=== PATIENT | male | born 1985 | race Caucasian/White ===

== ENCOUNTER 2016-07-01 17:00 | Emergency (ER) | payer OTHER ==
[~2016-07-01] VITALS: Wt 138.0 kg
[~2016-07-01 17:00] MED LIST: TRAM50TA2 PO
[2016-07-01] MEDS ORDERED: morphine 4 MG/ML VIAL IV STA ×2 (18:45→20:23)
[2016-07-01] MEDS ORDERED: ONDANSETRON 4 MG INJ IV STA (18:45)
--- NOTE | 2016-07-01 18:56 | ERD ---
ER Documentation Chief Complaint Date/Time DATE: 07/01/16 TIME: 18:54 Chief Complaint ABD PAIN RADIATING TO LEFT TESTICLE FOR THE PAST 3 DAYS. MILD SWELLING HPI This is a 31-year-old male who presents to the emergency department today complaining of some left-sided abdominal pain, vomiting and diarrhea for the past 3 days. Patient states the pain goes down into his groin. States he has a history of urinary tract infections but denies any history of kidney stones. CT taken Motrin with no improvement in pain. Denies any fevers or chills. Denies any testicular pain. ROS All systems reviewed and are negative except as per history of present illness. Medications Home Meds Active Scripts Loperamide Hcl* (Imodium*) 2 Mg Capsule, 2 MG PO .AFTER EA LOOSE BM Y for DIARRHEA, #10 TAB Prov:HENRY CAMPOVERDE PA-C 07/01/16 Ondansetron Hcl* (Zofran*) 4 Mg Tablet, 4 MG PO Q6H for NAUSEA AND/OR VOMITING, #30 TAB Prov:HENRY CAMPOVERDE PA-C 07/01/16 Ibuprofen* (Motrin*) 800 Mg Tab, 800 MG PO Q6, #30 TAB Prov:HENRY CAMPOVERDE PA-C 07/01/16 Tramadol HCl (Tramadol HCl) 50 Mg Tablet, 50 MG PO Q6, #10 TAB Prov:JOHN YOU DO 06/03/15 Tramadol HCl (Tramadol HCl) 50 Mg Tab, 50 MG PO Q4 Y for PAIN, #20 TAB Prov:YURI VALDES 03/21/15 Allergies Allergies: Coded Allergies: ketorolac (Verified Allergy, Mild, 03/07/15) acetaminophen (Unverified Allergy, Unknown, HIVES, 03/07/15) PMhx/Soc History of Surgery: Yes (CHOLECYSTECTOMY, APPENDECTOMY; r knee) Anesthesia Reaction: No Hx Neurological Disorder: No Hx Respiratory Disorders: No Hx Cardiac Disorders: No Hx Psychiatric Problems: No Hx Miscellaneous Medical Probl: No Hx Alcohol Use: Yes (ocassionally) Hx Substance Use: No Hx Tobacco Use: No Physical Exam Vitals Vital Signs Date Time Temp Pulse Resp B/P Pulse Ox O2 Delivery O2 Flow Rate FiO2 07/01/16 17:08 98.8 98 22 159/98 98 Physical Exam Const: Obese, no acute distress Head: Atraumatic Eyes: Normal Conjunctiva ENT: Normal External Ears, Nose and Mouth. Neck: Full range of motion..~ No meningismus. Resp: Clear to auscultation bilaterally Cardio: Regular rate and rhythm, no murmurs Abd: Soft, left lower quadrant tenderness, non distended. Normal bowel sounds. No Right lower quadrant tenderness. No rebound tenderness. : Testicle descended bilaterally. Uncircumcised. Nontender testicles. No purulent drainage from penis. No masses or lesions testicles Skin: No petechiae or rashes Back: No midline or flank tenderness Neur: Awake and alert Psych: Normal Mood and Affect Result Diagram: 07/01/161937 Results 24 hrs Laboratory Tests Test 07/01/16 19:25 07/01/16 19:38 Urine Bilirubin NEGATIVE Urine Clarity CLEAR Urine Color LT. YELLOW Urine Glucose NEGATIVE% Urine Hemoglobin 2+ Urine Ketones TRACE Urine Leukocyte Esterase NEGATIVE Urine Microscopic RBC 2-5/HPF Urine Microscopic WBC NONE SEEN/HPF Urine Nitrite NEGATIVE Urine Specific [place] 1.020 Urine Total Protein NEGATIVE Urine Urobilinogen 1.0 E.U./dL Urine pH 6.0 Alanine Aminotransferase (ALT/SGPT) 37IU/L Albumin 4.3g/dl Albumin/Globulin Ratio 1.16 Alkaline Phosphatase 88IU/L Anion Gap 18 Aspartate Amino Transf (AST/SGOT) 27IU/L Blood Urea Nitrogen 10mg/dl Calcium Level 9.3mg/dl Carbon Dioxide Level 27mmol/L Chloride Level 101mmol/L Creatinine 0.77mg/dl Direct Bilirubin 0.00mg/dl Globulin 3.70g/dl Glucose Level 109mg/dl Indirect Bilirubin 0.0mg/dl Lipase 69U/L Potassium Level 4.0mmol/L Sodium Level 142mmol/L Total Bilirubin 0.0mg/dl Total Protein 8.0g/dl Current Medications Medications (Trade) Dose Ordered Sig/Federico Route PRN Reason Start Time Stop Time Status Last Admin Dose Admin Morphine Sulfate (morphine) 4 mg ONCE STAT IV 07/01/16 18:45 07/01/16 18:47 DC 07/01/16 19:43 Ondansetron HCl (Zofran Inj) 4 mg ONCE STAT IV 07/01/16 18:45 07/01/16 18:47 DC 07/01/16 19:43 Morphine Sulfate (morphine) 4 mg ONCE STAT IV 07/01/16 20:23 07/01/16 20:24 DC 07/01/16 20:38 DIAGNOSTIC IMAGING REPORT Patient: DAYLIN ARGUETA : 1985 Age: 31 Sex: M MR #: [id number] DOS: 07/01/16 1845 Ordering MD: HENRY CAMPOVERDE PA-C Location: [facility] Room/Bed: PROCEDURE: CT Abdomen and Pelvis without contrast. CLINICAL INDICATION: Abdominal pain. TECHNIQUE: Multiple contiguous axial CT images of the abdomen and pelvis were obtained without the administration of intravenous contrast. Coronal and sagittal reconstructions were also performed. CTDIvol (mGy): 20.44; Total Exam DLP (mGy-cm): 1457.82. One or more of the following dose reduction techniques were utilized: - Automated exposure control. - Adjustment of the mA and/or kV according to patient size. - Use of iterative reconstruction technique. COMPARISON: 06/03/2015. FINDINGS: Limited imaging of the lower thorax is unremarkable. The liver and spleen are homogeneous in density. The liver is mildly diffusely low in attenuation compatible with fatty infiltration. The gallbladder is surgically absent. The pancreas and adrenal glands are unremarkable. The kidneys are symmetric in size. There are no nephroureteral stones. There is no hydronephrosis or abnormal perinephric inflammation. The abdominal aorta is normal in caliber. There is no periaortic / retroperitoneal lymphadenopathy. The stomach and small and large intestines are unremarkable. The appendix is not visualized. There are no focal inflammatory changes of the mesentery. There is no mesenteric lymphadenopathy. There is no ascites. The bladder, prostate and seminal vesicles are unremarkable. There is no free pelvic fluid. There is no pelvic sidewall or inguinal lymphadenopathy. Skeletal structures are unremarkable. Body wall soft tissues are unremarkable. IMPRESSION: No evidence of abdominopelvic mass, lymphadenopathy or acute inflammatory pathology. Mild fatty infiltration of the liver. RPTAT: HLST .Estefani Dupree MD, MD Date Time Electronically viewed and signed by .Estefani Dupree MD, on 07/01/2016 20:30 .T/ CC: HENRY CAMPOVERDE PA-C Procedures/[facility] This is a 31-year-old male who presents to the emergency department today complaining of left-sided abdominal pain. On physical exam he is very focal tenderness in his left lower quadrant as well as vomiting and diarrhea. Given this I did obtain laboratory work as well as imaging. Laboratory work CBC was pending at time of discharge giving technical difficulties for the laboratory machine. His electrolytes were within normal limits. His lipase was within normal limits. His liver function was within normal limits. UA is negative for infection. Patient had been seen here in emergency department previously and had VRE and never did some urine for culture. CT abdomen and pelvis noncontrast shows no evidence of abdominal pelvic mass, lymphadenopathy or acute inflammatory pathology. There is mild fatty infiltration of the liver. There is no inguinal lymphadenopathy. There is no free pelvic fluid. There is no hydronephrosis or abnormal . fracture stranding and no nephroureteral stones. Patient was given morphine, Zofran here in the emergency department. Patient was complaining of continued pain and was therefore given another 4 mg of morphine for a total of 8 mg of morphine. Patient was stating that he had pain however he was in no distress. I did explain to the patient that he would not benefit from any more pain medication and his negative CT scan. I did receive a fax from a provider at [facility] stating that the patient has chronic pain syndrome and the provider recommended that no pain meds for chronic conditions be given in the ED or urgent care. I did ask the patient if he knew this provider at [facility] and patient deny that saying he no longer goes to [facility]. There was a [facility] note from 08/10/2014 stating that patient may be displaying drug seeking behavior and gets Dilaudid injections. Patient's abdominal pain consistent with vomiting and diarrhea at this time. It is no evidence to suggest acute surgical abdomen. Patient was not actively vomiting here in the emergency department. He was given a prescription for Zofran, Imodium and Motrin. At this time the patient is stable for discharge and outpatient management. Patient should follow up with their PCP in the next 1-2 days. They may return to the emergency department sooner for any persistent or worsening of symptoms. Patient understood and agreed with the plan. Departure Diagnosis: Primary Impression: Abdominal pain Abdominal location: left lower quadrant Qualified Code: R10.32 - Left lower quadrant pain Condition: HENRY Villa PA-C Jul 01, 2016 18:56
[2016-07-01 19:45] LABS: ADD UMIC YES; URINE BILIRUBIN (Dip) NEGATIVE (NEGATIVE); URINE BLOOD (Dip) 2+ (NEGATIVE); URINE COLOR LT. YELLOW (YELLOW); URINE GLUCOSE (Dip) NEGATIVE (NEGATIVE); URINE KETONES (Dip) TRACE (NEGATIVE); URINE LEUKOCYTE ESTERASE (Dip) NEGATIVE (NEGATIVE); URINE NITRITE (Dip) NEGATIVE (NEGATIVE); URINE TOTAL PROTEIN (Dip) NEGATIVE (NEGATIVE); URINE UROBILINOGEN (Dip) 1.0 E.U./dL (0.1-1.0)
[2016-07-01 20:14] LABS: ALBUMIN 4.3 g/dl (3.3-4.9)
[2016-07-01 20:17] LABS: CREATININE 0.77 mg/dl (0.61-1.24)
[2016-07-01 20:18] LABS: ALBUMIN/GLOBULIN RATIO 1.16; CALCIUM 9.3 mg/dl (8.4-10.2)
--- NOTE | 2016-07-01 20:30 | RADRPT ---
PROCEDURE: CT Abdomen and Pelvis without contrast. CLINICAL INDICATION: Abdominal pain. TECHNIQUE: Multiple contiguous axial CT images of the abdomen and pelvis were obtained without the administration of intravenous contrast. Coronal and sagittal reconstructions were also performed. CTDIvol (mGy): 20.44; Total Exam DLP (mGy-cm): 1457.82. One or more of the following dose reduction techniques were utilized: - Automated exposure control. - Adjustment of the mA and/or kV according to patient size. - Use of iterative reconstruction technique. COMPARISON: 06/03/2015. FINDINGS: Limited imaging of the lower thorax is unremarkable. The liver and spleen are homogeneous in density. The liver is mildly diffusely low in attenuation c ompatible with fatty infiltration. The gallbladder is surgically absent. The pancreas and adrenal glands are unremarkable. The kidneys are symmetric in size. There are no nephroureteral stones. There is no hydronephrosis o r abnormal perinephric inflammation. The abdominal aorta is normal in caliber. There is no periaortic / retroperitoneal lymphadenopathy. The stomach and small and large intestines are unremarkable. The appendix is not visualized. There are no focal inflammatory changes of the mesentery. There is no mesenteric lymphadenopathy. There is no ascites. The bladder, prostate and seminal vesicles are unremarkable. There is no free pelvic fluid. There i s no pelvic sidewall or inguinal lymphadenopathy. Skeletal structures are unremarkable. Body wall soft tissues are unremarkable. IMPRESSION: No evidence of abdominopelvic mass, lymphadenopathy or acute inflammatory pathology. Mild fatty infiltration of the liver. RPTAT: HLST .Estefani Dupree MD, MD Date Time Electronically viewed and signed by .Estefani Dupree MD, MD on 07/01/2016 20:30 .T/
[2016-07-01] MEDS ORDERED: ONDA4TAB8 PO (21:52)
[2016-07-01] MEDS ORDERED: IBUP800T25 PO (21:52)
[2016-07-01] MEDS ORDERED: LOPE2CAP PO (21:53)
[2016-07-01 22:21] VITALS: BP 149/91; PULSE 93; RESP 18; TEMP 97.9
[2016-07-01 23:18] LABS: UNCORRECTED WBC 7.8 10^3/ul (4.8-10.8); WHITE BLOOD COUNT 7.8 10^3/ul (4.8-10.8)
[2016-07-01 23:19] LABS: BASOPHILS % 0.5 % (0.0-2.0); EOSINOPHILS % 2.8 % (0.0-7.0); HEMATOCRIT 41.3 % (42.0-52.0); HEMOGLOBIN 14.2 g/dl (14.0-18.0); LYMPHOCYTES % 25.5 % (15.0-51.0); MEAN CORPUSCULAR HEMOGLOBIN 28.2 pg (29.0-33.0); MEAN CORPUSCULAR HGB CONC 34.4 g/dl (32.0-37.0); MEAN CORPUSCULAR VOLUME 81.9 fl (82.0-101.0); MONOCYTES % 5.7 % (0.0-11.0); NEUTROPHILS % 64.9 % (39.0-77.0); PLATELET COUNT 262 10^3/UL (140-440); RED BLOOD COUNT 5.04 10^6/ul (4.70-6.10)
[2016-07-01 23:20] LABS: EOSINOPHILS # 0.2 10^3/ul (0.0-0.5); MONOCYTE # 0.4 10^3/ul (0.3-0.9)
== END 2016-07-01 22:21 | disposition home or self-care (01) ==
LOC: FTE 17:00
DX: R10.32 Left lower quadrant pain (principal); R11.10 Vomiting, unspecified
CPT/HCPCS: 36415; 74176; 80053; 81001; 83690; 85025; 87086; 96374; 96375; 96376; J2270; J2405; Z7502; 81003

== ENCOUNTER 2016-07-04 11:23 | Emergency (ER) | payer OTHER ==
[~2016-07-04] VITALS: Wt 136.0 kg
[~2016-07-04 11:23] MED LIST changes: +IBUP800T25 PO; +LOPE2CAP PO; +ONDA4TAB8 PO
[2016-07-04] MEDS ORDERED: morphine 4 MG/ML VIAL IV STA (11:43)
[2016-07-04] MEDS ORDERED: ONDANSETRON 4 MG INJ IV STA (11:43)
[2016-07-04] MEDS ORDERED: SOD CHLORIDE 0.9% 1,000 ML IV STA (11:43)
[2016-07-04] MEDS ORDERED: CIPROFLOXACIN 400MG/D5W 200 ML IVPB ONE (12:00)
[2016-07-04 12:25] LABS: ADD UMIC YES; URINE BLOOD (Dip) 3+ (NEGATIVE); URINE COLOR RED (YELLOW); URINE GLUCOSE (Dip) NEGATIVE (NEGATIVE); URINE KETONES (Dip) NEGATIVE (NEGATIVE); URINE LEUKOCYTE ESTERASE (Dip) NEGATIVE (NEGATIVE); URINE NITRITE (Dip) NEGATIVE (NEGATIVE); URINE TOTAL PROTEIN (Dip) 2+ (NEGATIVE); URINE UROBILINOGEN (Dip) 1.0 E.U./dL (0.1-1.0)
[2016-07-04 12:26] LABS: BASOPHILS % 0.2 % (0.0-2.0); EOSINOPHILS # 0.2 10^3/ul (0.0-0.5); EOSINOPHILS % 2.7 % (0.0-7.0); HEMATOCRIT 41.4 % (42.0-52.0); HEMOGLOBIN 14.6 g/dl (14.0-18.0); LYMPHOCYTES # 1.8 10^3/ul (0.8-2.9); LYMPHOCYTES % 19.6 % (15.0-51.0); MEAN CORPUSCULAR HEMOGLOBIN 28.3 pg (29.0-33.0); MEAN CORPUSCULAR HGB CONC 35.2 g/dl (32.0-37.0); MEAN CORPUSCULAR VOLUME 80.5 fl (82.0-101.0); MEAN PLATELET VOLUME 7.5 fl (7.4-10.4); MONOCYTE # 0.5 10^3/ul (0.3-0.9); MONOCYTES % 5.3 % (0.0-11.0); NEUTROPHIL # 6.6 10^3/ul (1.6-7.5); NEUTROPHILS % 72.2 % (39.0-77.0); PLATELET COUNT 239 10^3/UL (140-440); RED BLOOD COUNT 5.14 10^6/ul (4.70-6.10); RED CELL DISTRIBUTION WIDTH 12.9 % (11.5-14.5); UNCORRECTED WBC 9.1 10^3/ul (4.8-10.8); WHITE BLOOD COUNT 9.1 10^3/ul (4.8-10.8)
[2016-07-04 12:35] LABS: URINE BILIRUBIN (Dip) NEGATIVE (NEGATIVE)
[2016-07-04 12:37] LABS: URINE RBCS >200 /HPF (0)
[2016-07-04 12:38] LABS: CONDITION 1; LH ANALYZER COMMENTS 1
[2016-07-04 12:39] LABS: BACTERIA,URINE FEW
[2016-07-04 12:50] LABS: POTASSIUM 4.2 mmol/L (3.5-5.1)
[2016-07-04 12:52] LABS: CREATININE 0.72 mg/dl (0.61-1.24)
[2016-07-04 12:53] LABS: ALBUMIN/GLOBULIN RATIO 1.02; CALCIUM 9.5 mg/dl (8.4-10.2); TOTAL PROTEIN 7.9 g/dl (6.1-8.1)
[2016-07-04] MEDS ORDERED: HYDROmorphONE 1 MG/ML SYG IV STA (13:01)
[2016-07-04 13:25] VITALS: BP 143/105; PULSE 93; RESP 20; TEMP 98.4
--- NOTE | 2016-07-04 13:41 | ERD ---
ER Documentation Chief Complaint Date/Time DATE: 07/04/16 TIME: 12:00 Chief Complaint LEFT FLANK PAIN FOR THEPAST FEW DAYS, NO RELIEF FROM PAIN. NO CHANGES HPI 31-year-old male with a history of chronic left flank pain, nephrolithiasis and pyelonephritis was seen in the ED 07/01/16 for flank pain. Urinalysis grew out Staphylococcus of unknown type and he is called back for further evaluation. Patient continues to have severe sharp, left flank pain which radiates to the left lower quadrant. Nausea but no vomiting, diarrhea or constipation. No abdominal pain, chest pain or shortness of breath. CT scan 07/01/16 was unremarkable. Subjective fevers and chills. ROS All systems reviewed and are negative except as per history of present illness. Medications Home Meds Active Scripts Loperamide Hcl* (Imodium*) 2 Mg Capsule, 2 MG PO .AFTER EA LOOSE BM Y for DIARRHEA, #10 TAB Prov:HENRY CAMPOVERDE PA-C 07/01/16 Ondansetron Hcl* (Zofran*) 4 Mg Tablet, 4 MG PO Q6H for NAUSEA AND/OR VOMITING, #30 TAB Prov:HENRY CAMPOVERDE PA-C 07/01/16 Ibuprofen* (Motrin*) 800 Mg Tab, 800 MG PO Q6, #30 TAB Prov:HENRY CAMPOVERDE PA-C 07/01/16 Tramadol HCl (Tramadol HCl) 50 Mg Tablet, 50 MG PO Q6, #10 TAB Prov:JOHN YOU DO 06/03/15 Discontinued Scripts Tramadol HCl (Tramadol HCl) 50 Mg Tab, 50 MG PO Q4 Y for PAIN, #20 TAB Prov:YURI VALDES 03/21/15 Allergies Allergies: Coded Allergies: ketorolac (Verified Allergy, Mild, 07/04/16) acetaminophen (Unverified Allergy, Unknown, HIVES, 07/04/16) PMhx/Soc Reviewed in chart. As per HPI History of Surgery: Yes (CHOLECYSTECTOMY, APPENDECTOMY; r knee) Anesthesia Reaction: No Hx Neurological Disorder: No Hx Respiratory Disorders: No Hx Cardiac Disorders: No Hx Psychiatric Problems: No Hx Miscellaneous Medical Probl: No Hx Alcohol Use: Yes (ocassionally) Hx Substance Use: No Hx Tobacco Use: No FmHx No stroke or cancer Physical Exam Vitals Vital Signs Date Time Temp Pulse Resp B/P Pulse Ox O2 Delivery O2 Flow Rate FiO2 07/04/16 13:25 98.4 93 20 143/105 98 Room Air 07/04/16 11:32 98.8 98 20 171/102 98 Physical Exam Const: Alert, mild distress due to pain. Head: Atraumatic Eyes: Normal Conjunctiva ENT: Normal External Ears, Nose and Mouth. Neck: Full range of motion.. Nontender Resp: Clear to auscultation bilaterally Cardio: Regular rate and rhythm, no murmurs Abd: Soft, non tender, non distended. Normal bowel sounds Skin: No petechiae or rashes Back: Left CVA tenderness. Ext: No cyanosis, or edema Neur: Awake and alert. No focal deficit observed. Psych: Normal Mood and Affect Result Diagram: 07/04/16 1205 07/04/16 1205 Results 24 hrs Laboratory Tests Test 07/04/16 12:05 Alanine Aminotransferase (ALT/SGPT) 37IU/L Albumin 4.0g/dl Albumin/Globulin Ratio 1.02 Alkaline Phosphatase 85IU/L Anion Gap 17 Aspartate Amino Transf (AST/SGOT) 21IU/L Basophils # 0.010^3/ul Basophils % 0.2% Blood Morphology Comment Blood Urea Nitrogen 10mg/dl Calcium Level 9.5mg/dl Carbon Dioxide Level 27mmol/L Chloride Level 105mmol/L Creatinine 0.72mg/dl Direct Bilirubin 0.00mg/dl Eosinophils # 0.210^3/ul Eosinophils % 2.7% Globulin 3.90g/dl Glucose Level 94mg/dl Hematocrit 41.4% Hemoglobin 14.6g/dl Indirect Bilirubin 0.0mg/dl Lipase 55U/L Lymphocytes # 1.810^3/ul Lymphocytes % 19.6% Mean Corpuscular Hemoglobin 28.3pg Mean Corpuscular Hemoglobin Concent 35.2g/dl Mean Corpuscular Volume 80.5fl Mean Platelet Volume 7.5fl Monocytes # 0.510^3/ul Monocytes % 5.3% Neutrophils # 6.610^3/ul Neutrophils % 72.2% Nucleated Red Blood Cells # 0.010^3/ul Nucleated Red Blood Cells % 0.0/100WBC Platelet Count 36946^3/UL Potassium Level 4.2mmol/L Red Blood Count 5.1410^6/ul Red Cell Distribution Width 12.9% Sodium Level 145mmol/L Total Bilirubin 0.0mg/dl Total Protein 7.9g/dl Urine Bacteria FEW Urine Bilirubin NEGATIVE Urine Clarity CLEAR Urine Color RED Urine Glucose NEGATIVE% Urine Hemoglobin 3+ Urine Ketones NEGATIVE Urine Leukocyte Esterase NEGATIVE Urine Microscopic RBC >200/HPF Urine Microscopic WBC 0-2/HPF Urine Nitrite NEGATIVE Urine Specific [place] 1.025 Urine Total Protein 2+ Urine Urobilinogen 1.0 E.U./dL Urine pH 5.5 White Blood Count 9.110^3/ul Current Medications Medications (Trade) Dose Ordered Sig/Federico Route PRN Reason Start Time Stop Time Status Last Admin Dose Admin Sodium Chloride (NS) 1,000 ml @ 1,000 mls/hr Q1H STAT IV 07/04/16 11:43 07/04/16 12:42 DC 07/04/16 12:09 Ondansetron HCl 4 mg 4 mg ONCE STAT IV 07/04/16 11:43 07/04/16 11:47 DC 07/04/16 12:08 Ciprofloxacin/ Dextrose (Cipro Ivpb) 200 ml @ 200 mls/hr ONCE ONCE IVPB 07/04/16 12:00 07/04/16 12:59 DC 07/04/16 12:09 Morphine Sulfate (morphine) 4 mg ONCE STAT IV 07/04/16 11:43 07/04/16 11:47 DC 07/04/16 12:08 Hydromorphone HCl (Dilaudid) 1 mg ONCE STAT IV 07/04/16 13:01 07/04/16 13:02 DC 07/04/16 13:05 Procedures/MDM DOCUMENTS REVIEWED: ED nurse, prior ED, prior records REEXAMINATION/REEVALUATION: Time: 13:00. Pain not resolved by morphine and Dilaudid 1 mg IV is given. [employer]ISION MAKIN-year-old male with a history of chronic left flank pain, nephrolithiasis and pyelonephritis was seen in the ED 07/01/16 for flank pain. Urinalysis from 07/01 grew out Staphylococcus and patient continues to have flank pain. Urinalysis now shows greater than 200 red cells but no white cells. No fever, leukocytosis other signs of acute infectious process. He will be covered with ciprofloxacin as per his previous culture pending repeat. Recent negative CAT scan which will not be repeated today. No renal insufficiency. Stable for discharge precautionary instructions and outpatient follow-up as counseled. Counseled patient regarding diagnostic workup, diagnosis and need for followup. Understands to return to ED if symptoms recur, worsen or any other concerns. Departure Diagnosis: Primary Impression: Flank pain Additional Impressions: Hematuria Urinary tract infection with hematuria Urinary tract infection type: site unspecified Qualified Code: N39.0 - Urinary tract infection with hematuria, site unspecified Pyelonephritis Condition: Stable Patient Instructions: Flank Pain, Uncertain Cause, Hematuria, Pyelonephritis, Male (Adult) EMERALD CARRILLO MD Jul 04, 2016 13:41
[2016-07-04] MEDS ORDERED: CIPR500T4 PO (13:42)
[2016-07-04] MEDS ORDERED: TRAM50TA2 PO (13:43)
== END 2016-07-04 13:55 | disposition home or self-care (01) ==
LOC: E/R 11:23
DX: R10.9 Unspecified abdominal pain (principal); R11.0 Nausea; N39.0 Urinary tract infection, site not specified; N12 Tubulo-interstitial nephritis, not specified as acute or chronic; R31.9 Hematuria, unspecified
CPT/HCPCS: 36415; 80053; 81001; 83690; 85025; 87086; 96374; 96375; J0744; J1170; J2270; J2405; J7030; Z7502; 81003

== ENCOUNTER 2016-07-06 08:49 | Emergency (ER) | payer OTHER ==
[~2016-07-06] VITALS: Ht 190.5 cm; Wt 136.5 kg
[~2016-07-06 08:49] MED LIST changes: +CIPR500T4 PO
[2016-07-06 08:59] VITALS: Ht 190.5 cm; Wt 136.5 kg
--- NOTE | 2016-07-06 09:57 | ERD ---
ER Documentation Chief Complaint Date/Time DATE: 07/06/16 TIME: 09:40 Chief Complaint BLOOD IN THE URINE,PAINFUL URINATION HPI 31 y/o male presents to ED for hematuria and painful urination. Patient stated that it started last . Was seen here in the emergency department and was discharged, and advised to follow-up with her primary care physician and urologist in the following 24-48 hours. Patient stated that he came today because his pain is uncontrolled and specifically stating that tramadol is not working for him. He also stated that he has allergies to Toradol and Tylenol. And also requesting a stronger pain medicine. Denies headache, loss of consciousness, dizziness, blurry vision, changes in vision, photophobia, facial pain, ear pain, throat pain, difficulty swallowing, neck pain, shoulder pain, chest pain, cough, hemoptysis, abdominal pain, loss of appetite, nausea, vomiting, hematochezia, diarrhea, constipation, trauma, bladder and bowel incontinences, extremity weakness, extremity tenderness, numbness or tingling sensation, difficulty walking, recent travel, recent exposure to illness, recent antibiotic use in the last 3 months, fever, chills. 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 Occasionally drinks alcoholic beverages. Denies smoking, use of illegal drugs. ROS All systems reviewed and are negative except as per history of present illness. Medications Home Meds Active Scripts Tramadol HCl (Tramadol HCl) 50 Mg Tablet, 50 MG PO Q6, #12 TAB Prov:EMERALD CARRILLO MD 07/04/16 Ciprofloxacin Hcl* (Ciprofloxacin Hcl*) 500 Mg Tablet, 500 MG PO BID for 10 Days , TAB Prov:EMERALD CARRILLO MD 07/04/16 Loperamide Hcl* (Imodium*) 2 Mg Capsule, 2 MG PO .AFTER EA LOOSE BM Y for DIARRHEA, #10 TAB Prov:HENRY CAMPOVERDE PA-C 07/01/16 Ondansetron Hcl* (Zofran*) 4 Mg Tablet, 4 MG PO Q6H for NAUSEA AND/OR VOMITING, #30 TAB Prov:HENRY CAMPOVERDE PA-C 07/01/16 Ibuprofen* (Motrin*) 800 Mg Tab, 800 MG PO Q6, #30 TAB Prov:HENRY CAMPOVERDEBong LLOYD 07/01/16 Tramadol HCl (Tramadol HCl) 50 Mg Tablet, 50 MG PO Q6, #10 TAB Prov:JOHN YOU DO 06/03/15 Discontinued Scripts Tramadol HCl (Tramadol HCl) 50 Mg Tab, 50 MG PO Q4 Y for PAIN, #20 TAB Prov:YURI VALDES 03/21/15 Allergies Allergies: Coded Allergies: ketorolac (Verified Allergy, Mild, 07/04/16) acetaminophen (Unverified Allergy, Unknown, HIVES, 07/04/16) PMhx/Soc History of Surgery: Yes (CHOLECYSTECTOMY, APPENDECTOMY; r knee) Anesthesia Reaction: No Hx Neurological Disorder: No Hx Respiratory Disorders: No Hx Cardiac Disorders: No Hx Psychiatric Problems: No Hx Miscellaneous Medical Probl: No Hx Alcohol Use: Yes (ocassionally) Hx Substance Use: No Hx Tobacco Use: No Physical Exam Vitals Vital Signs Date Time Temp Pulse Resp B/P Pulse Ox O2 Delivery O2 Flow Rate FiO2 07/06/16 08:59 98.4 102 18 163/96 98 Physical Exam CONSTITUTIONAL: Well-appearing; well-nourished; in no apparent distress. HEAD: Normocephalic; atraumatic. EYES: Conjunctiva clear, sclera non-icteric, EOM intact. PERRL Ears: Hearing intact. EACs clear, TMs non-bulging, non-inflamed, translucent & mobile, ossicles normal appearance, No obstructions, no erythema, no discharges Nose: No obstructions. No polyps. No external lesions. Mucosa non-inflamed. No external lesions, septum and turbinates normal. No rhinorrhea. No discharges. Frontal sinus is non-tender to palpation. Maxillary sinus is non-tender to palpation. MOUTH: Moist mucous membranes, no lesion, no obstructions, no vesicles, no thrush, patent airway Throat: Uvula in midline. Right tonsil is +1 with no erythema, no exudate. Left tonsil is +1 with no erythema, no exudate. Tolerating secretions well. Good gag reflex. Patent airway. Neck: Supple, without lesions, bruits, or adenopathy. No mass. Thyroid non- enlarged and non-tender to palpation. CHEST: Symmetrical chest. Respirations even and not labored. No retractions noted. CARDIOVASCULAR: Normal S1, S2. RRR. No murmurs, gallops. RESPIRATORY: Normal chest excursion with respiration; breath sounds clear and equal bilaterally; no wheezes, rhonchi, or rales. Breathing even and unlabored. Speaking in clear, full, and complete sentences w/ ease. ABDOMEN: Normal bowel sounds normal. Soft, round, non-distended, non-guarding, no tenderness, no rebound, no organomegaly, no masses, no pulsating abdominal mass. No hernia. No peritoneal signs. : There is no CVA tenderness. BACK: Symmetrical shoulder. Spine is midline without deformity, tenderness. No evidence of trauma or deformity. PELVIS: Stable pelvis. No evidence of trauma or deformity. MUSCULOSKELETAL: Normal gait and station. No misalignment, asymmetry, crepitation, defects, tenderness, masses, effusions, decreased range of motion, instability, atrophy or abnormal strength or tone in the head, neck, spine, ribs , pelvis or extremities. No calf tenderness. NEUROVASCULAR: Distal pulses are present. Pedal pulse are present, equal, and normal. Capillary refills are < 2 seconds. NEUROLOGIC: Alert and oriented x4. Speaks full and clear sentences. Cranial Nerves II-XII normal. Sensation to pain, touch, and proprioception normal. Grossly unremarkable. No neurologic deficits. Romberg test is negative. PSYCHOLOGICAL: The patients mood and manner are appropriate. No hallucinations , delusions. Not SI. Not HI. Has the capacity to decide for self SKIN: Normal for age and ethnicity; warm; dry; good turgor; no apparent lesions or exudates. No rashes, hives, discoloration. Intact. Result Diagram: 07/06/16 1035 07/06/16 1035 Results 24 hrs Laboratory Tests Test 07/06/16 09:53 07/06/16 10:35 Urine Bilirubin NEGATIVE Urine Clarity CLEAR Urine Color LT. YELLOW Urine Glucose NEGATIVE% Urine Hemoglobin 3+ Urine Ketones NEGATIVE Urine Leukocyte Esterase NEGATIVE Urine Microscopic RBC 10-25/HPF Urine Microscopic WBC 2-5/HPF Urine Nitrite NEGATIVE Urine Specific [place] 1.010 Urine Total Protein TRACE Urine Urobilinogen 0.2 E.U./dL Urine pH 6.0 Anion Gap 19 Basophils # 0.010^3/ul Basophils % 0.3% Blood Morphology Comment Blood Urea Nitrogen 11mg/dl Calcium Level 10.2mg/dl Carbon Dioxide Level 27mmol/L Chloride Level 101mmol/L Creatinine 0.74mg/dl Eosinophils # 0.210^3/ul Eosinophils % 2.8% Glucose Level 97mg/dl Hematocrit 43.1% Hemoglobin 15.1g/dl Lymphocytes # 1.510^3/ul Lymphocytes % 19.2% Mean Corpuscular Hemoglobin 28.5pg Mean Corpuscular Hemoglobin Concent 35.0g/dl Mean Corpuscular Volume 81.5fl Mean Platelet Volume 7.5fl Monocytes # 0.610^3/ul Monocytes % 7.2% Neutrophils # 5.510^3/ul Neutrophils % 70.5% Nucleated Red Blood Cells # 0.010^3/ul Nucleated Red Blood Cells % 0.0/100WBC Platelet Count 60477^3/UL Potassium Level 4.0mmol/L Red Blood Count 5.2910^6/ul Red Cell Distribution Width 12.6% Sodium Level 143mmol/L White Blood Count 7.810^3/ul Current Medications Medications (Trade) Dose Ordered Sig/Federico Route PRN Reason Start Time Stop Time Status Last Admin Dose Admin Tramadol HCl (Ultram) 50 mg ONCE ONCE PO 07/06/16 10:30 07/06/16 10:31 DC 07/06/16 10:23 Ondansetron HCl (Zofran Odt) 4 mg ONCE STAT ODT 07/06/16 10:12 07/06/16 10:14 DC 07/06/16 10:23 Procedures/MDM Examination: Disease process, medical treatment was explained to the patient and family member. They verbalized understanding and agreed with the diagnostic tests, medical treatment, and follow-up care. Blood works unremarkable Urinalysis: Unremarkable except 3+ on hemoglobin Treatment: Tramadol. Re-evaluation: Appearance is comfortable with the patient specifically requests for a stronger pain medicine. Consultation: None Differential diagnosis: Kidney stone versus hematuria versus dysuria versus UTI Medical decision makin31 y/o male presents to ED for hematuria and painful urination. Patient stated that it started last . Was seen here in the emergency department and was discharged, and advised to follow-up with her primary care physician and urologist in the following 24-48 hours. Patient stated that he came today because his pain is uncontrolled and specifically stating that tramadol is not working for him. He also stated that he has allergies to Toradol and Tylenol. And also requesting a stronger pain medicine. Patient's complaint, history, my physical findings, diagnostic test results are consistent with my final diagnosis of hematuria. Medications prescribed are the following: Advised to continue his prescribed pain medications at home. Patient and family member are made aware of the side effects and adverse reactions of the medications prescribed. Instructed on when to seek emergent and medical attention in case allergic/anaphylactic reactions or severe side effects and or adverse reactions to medications. Patient and family member verbalized understanding. Patient instructed Instructed to follow-up with his PCP in 24-48 hours. PCP to refer patient to urologist. Instructed to Call 911 for chest pain, shortness of breath. Advised to come back here in ED as soon as possible for severity of symptoms which includes but not limited to: any new symptoms; shortness of breath/difficulty of breathing; cardiovascular changes; severe gastrointestinal symptoms; signs and symptoms of bleeding and or infection; signs of compartment syndrome/neurovascular changes; neurological changes/deficits. Patient and family member verbalized understanding. Upon discharge, patient is alert and oriented x 4, speaks full and clear sentences, denies pain, has no neurological deficits, has no neurovascular deficits, difficulty of breathing. Breathing even and unlabored. Lung sounds are clear to auscultation. Not in distress. Appears comfortable. Ambulatory with steady gait. No active bleeding. Appears satisfied with care provided here in ED. Departure Diagnosis: Primary Impression: Hematuria Condition: Good Additional Instructions: Follow-up with PCP in 24-48 hours. PCP to refer patient to urologist in the next 24-48 hours. MILDRED GREY Jul 06, 2016 09:57 MILDRED GREY Jul 06, 2016 09:57
[2016-07-06] MEDS ORDERED: ONDANSETRON (ODT) 4 MG TAB ODT STA (10:12)
[2016-07-06 10:21] LABS: ADD UMIC YES; URINE BILIRUBIN (Dip) NEGATIVE (NEGATIVE); URINE BLOOD (Dip) 3+ (NEGATIVE); URINE COLOR LT. YELLOW (YELLOW); URINE GLUCOSE (Dip) NEGATIVE (NEGATIVE); URINE KETONES (Dip) NEGATIVE (NEGATIVE); URINE LEUKOCYTE ESTERASE (Dip) NEGATIVE (NEGATIVE); URINE NITRITE (Dip) NEGATIVE (NEGATIVE); URINE TOTAL PROTEIN (Dip) TRACE (NEGATIVE); URINE UROBILINOGEN (Dip) 0.2 E.U./dL (0.1-1.0)
[2016-07-06] MEDS ORDERED: traMADol 50 MG TAB PO ONE (10:30)
[2016-07-06 11:00] LABS: BASOPHILS % 0.3 % (0.0-2.0); EOSINOPHILS # 0.2 10^3/ul (0.0-0.5); EOSINOPHILS % 2.8 % (0.0-7.0); HEMATOCRIT 43.1 % (42.0-52.0); HEMOGLOBIN 15.1 g/dl (14.0-18.0); LYMPHOCYTES # 1.5 10^3/ul (0.8-2.9); LYMPHOCYTES % 19.2 % (15.0-51.0); MEAN CORPUSCULAR HEMOGLOBIN 28.5 pg (29.0-33.0); MEAN CORPUSCULAR VOLUME 81.5 fl (82.0-101.0); MEAN PLATELET VOLUME 7.5 fl (7.4-10.4); MONOCYTE # 0.6 10^3/ul (0.3-0.9); MONOCYTES % 7.2 % (0.0-11.0); NEUTROPHIL # 5.5 10^3/ul (1.6-7.5); NEUTROPHILS % 70.5 % (39.0-77.0); PLATELET COUNT 249 10^3/UL (140-440); RED BLOOD COUNT 5.29 10^6/ul (4.70-6.10); RED CELL DISTRIBUTION WIDTH 12.6 % (11.5-14.5); UNCORRECTED WBC 7.8 10^3/ul (4.8-10.8); WHITE BLOOD COUNT 7.8 10^3/ul (4.8-10.8)
[2016-07-06 11:05] LABS: CONDITION 1; LH ANALYZER COMMENTS 1
[2016-07-06 11:13] LABS: CREATININE 0.74 mg/dl (0.61-1.24)
[2016-07-06 11:14] LABS: CALCIUM 10.2 mg/dl (8.4-10.2)
== END 2016-07-06 12:22 | disposition home or self-care (01) ==
LOC: FTE 08:49
DX: R31.9 Hematuria, unspecified (principal)
CPT/HCPCS: 80048; 81001; 81003; 85025; Z7610; 99283

== ENCOUNTER 2016-09-11 13:49 | Emergency (ER) | payer OTHER ==
[~2016-09-11] VITALS: Ht 190.5 cm; Wt 118.0 kg
[2016-09-11 13:58] VITALS: Ht 190.5 cm; Wt 118.0 kg
[2016-09-11 14:54] LABS: ADD UMIC YES; URINE BILIRUBIN (Dip) NEGATIVE (NEGATIVE); URINE BLOOD (Dip) 3+ (NEGATIVE); URINE COLOR LT. YELLOW (YELLOW); URINE GLUCOSE (Dip) NEGATIVE (NEGATIVE); URINE KETONES (Dip) NEGATIVE (NEGATIVE); URINE LEUKOCYTE ESTERASE (Dip) NEGATIVE (NEGATIVE); URINE NITRITE (Dip) NEGATIVE (NEGATIVE); URINE TOTAL PROTEIN (Dip) 1+ (NEGATIVE); URINE UROBILINOGEN (Dip) 0.2 E.U./dL (0.1-1.0)
[2016-09-11] MEDS ORDERED: traMADol 50 MG TAB PO ONE (15:00)
[2016-09-11 15:06] LABS: MUCUS,URINE MODERATE
--- NOTE | 2016-09-11 16:09 | RADRPT ---
PROCEDURE: US Scrotum. CLINICAL INDICATION: Testicular pain. TECHNIQUE: Multiple sonographic images of the scrotal region were obtained utilizing a linear arra y transducer with grayscale and color-flow and a Doppler imaging. The images were reviewed on a high -resolution PACS workstation. COMPARISON: No. FINDINGS: The right testicle is well visualized and has a normal echotexture. There are scattered microcalcifi cations in the right testicle. The right testicle measures measures 3 cm by 2.1 x 4.3 cm. There is n ormal color-flow. The right epididymis is visualized and measures 1 cm. It is unremarkable in appea elizabeth. There is normal color-flow. The left testicle is well visualized and has a normal echotexture. There are scattered microcalcific ations in the left testicle. The left testicle measures measures 4.2 x 1.7 by 2.5 cm. There is norm al color-flow. The left epididymis is visualized and is unremarkable in appearance. There is normal color-flow. There is trace fluid adjacent to the left testicle. The scrotal wall is unremarkable. No swelling or edema is seen. No other incidental abnormality is identified. IMPRESSION: 1. Bilateral testicular microlithiasis more prominent on the left. 2. Normal blood flow to both testicles. . RPTAT:AAJJ Physician Luis Date Time Electronically viewed and signed by Physician Luis on 09/11/2016 16:09 ROZ/
[2016-09-11] MEDS ORDERED: TRAM50TA2 PO (16:27)
[2016-09-11] MEDS ORDERED: TAMS-14 PO (16:27)
--- NOTE | 2016-09-11 16:36 | ERD ---
ER Documentation Chief Complaint Date/Time DATE: 09/11/16 TIME: 16:31 Chief Complaint pt bib self with c/o back/groin pain for 2 days HPI Patient is a 31-year-old male with a past medical history of kidney stones, hematuria, flank pain who presents to the emergency department with bilateral flank pain and groin pain. Of note, patient has numerous emergency room visits within the last few days for similar complaints per the [facility] system. Of note, when questioning the patient about these visits, he states that he was in [place] thus it "must not have been me." Patient states he has had persistent hematuria for the last few months. Patient also reports frequency and urgency. Patient states the pain originates in his bilateral leg regions and radiates down to his groin area. Patient states typically he has not had groin pain and this is the first he is having it. Patient denies any fevers, chills, nausea, vomiting. Patient states he is not follow-up with a urologist. ROS All systems reviewed and are negative except as per history of present illness. Medications Home Meds Active Scripts Tamsulosin Hcl* (Flomax*) 0.4 Mg Cap.er.24h, 0.4 MG PO BID, #30 CAP Prov:KACI PATEL PA-C 09/11/16 Tramadol HCl (Tramadol HCl) 50 Mg Tablet, 50 MG PO Q4 Y for PAIN, #10 TAB Prov:KACI PATEL PA-C 09/11/16 Tramadol HCl (Tramadol HCl) 50 Mg Tablet, 50 MG PO Q6, #12 TAB Prov:EMERALD CARRILLO MD 07/04/16 Ciprofloxacin Hcl* (Ciprofloxacin Hcl*) 500 Mg Tablet, 500 MG PO BID for 10 Days , TAB Prov:EMERALD CARRILLO MD 07/04/16 Loperamide Hcl* (Imodium*) 2 Mg Capsule, 2 MG PO .AFTER EA LOOSE BM Y for DIARRHEA, #10 TAB Prov:HENRY CAMPOVERDE PA-C 07/01/16 Ondansetron Hcl* (Zofran*) 4 Mg Tablet, 4 MG PO Q6H for NAUSEA AND/OR VOMITING, #30 TAB Prov:HENRY CAMPOVERDE PA-C 07/01/16 Ibuprofen* (Motrin*) 800 Mg Tab, 800 MG PO Q6, #30 TAB Prov:HENRY CAMPOVERDE PA-C 07/01/16 Tramadol HCl (Tramadol HCl) 50 Mg Tablet, 50 MG PO Q6, #10 TAB Prov:JOHN YOU DO 06/03/15 Allergies Allergies: Coded Allergies: ketorolac (Verified Allergy, Mild, 07/04/16) PMhx/Soc History of Surgery: Yes (CHOLECYSTECTOMY, APPENDECTOMY; r knee) Anesthesia Reaction: No Hx Neurological Disorder: No Hx Respiratory Disorders: No Hx Cardiac Disorders: No Hx Psychiatric Problems: No Hx Miscellaneous Medical Probl: No Hx Alcohol Use: Yes (ocassionally) Hx Substance Use: No Hx Tobacco Use: No Smoking Status: Never smoker Physical Exam Vitals Vital Signs Date Time Temp Pulse Resp B/P Pulse Ox O2 Delivery O2 Flow Rate FiO2 09/11/16 13:58 98.3 107 20 166/94 98 Physical Exam GENERAL: Well-developed, well-nourished male. Appears in no acute distress. HEAD: Normocephalic, atraumatic. EYES: Pupils are equally reactive bilaterally. EOMs grossly intact. No conjunctival erythema. ENT: Moist mucous membranes. No uvula deviation. No kissing tonsils. NECK: Supple. No meningismus. Normal range of motion of the neck. LUNG: Clear to auscultation bilaterally. No rhonchi, wheezing, rales or coarse breath sounds. HEART: Regular rate and rhythm. No murmurs, rubs or gallops. ABDOMEN: No scars, ecchymosis or rashes noted. Soft, nontender, and nondistended. Positive bowel sounds in all four quadrants. No rebound tenderness , no guarding. (-) McBurney's point tenderness. Bilateral CVA tenderness. 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 Normal, uncircumcised penis without any lesions, masses or deformities. No penile discharge noted. Normal scrotum without any masses, tenderness, swelling or erythema. No inguinal hernias. Normal cremasteric reflex. BACK: No midline tenderness. EXTREMITIES: Equal pulses bilaterally. No peripheral clubbing, cyanosis or edema. No unilateral leg swelling. NEUROLOGIC: Alert and oriented. Moving all four extremities without any difficulty. Normal speech. Steady gait. SKIN: Normal color. Warm and dry. No rashes or lesions. Results 24 hrs Laboratory Tests Test 09/11/16 14:45 Urine Color LT. YELLOW Urine Clarity SLIGHTLY CLOUDY Urine pH 6.5 Urine Specific [place] 1.015 Urine Ketones NEGATIVE Urine Nitrite NEGATIVE Urine Bilirubin NEGATIVE Urine Urobilinogen 0.2 E.U./dL Urine Leukocyte Esterase NEGATIVE Urine Microscopic RBC 5-10/HPF Urine Microscopic WBC 2-5/HPF Urine Epithelial Cells MODERATE Urine Calcium Oxalate Crystals FEW Urine Mucus MODERATE Urine Hemoglobin 3+ Urine Glucose NEGATIVE% Urine Total Protein 1+ Current Medications Medications (Trade) Dose Ordered Sig/Federico Route PRN Reason Start Time Stop Time Status Last Admin Dose Admin Tramadol HCl (Ultram) 50 mg ONCE ONCE PO 09/11/16 15:00 09/11/16 15:01 DC 09/11/16 15:06 Procedures/MDM ED COURSE: The patient was stable throughout ED course. I kept the patient and/or family informed of laboratory and diagnostic imaging results throughout the ED course. DIAGNOSTIC IMAGING: Read by radiologist. DIAGNOSTIC IMAGING REPORT Patient: DAYLIN ARGUETA : 1985 Age: 31 Sex: M MR #: [id number] DOS: 09/11/16 0000 Ordering MD: KACI PATEL PA-C Location: [facility] Room/Bed: PROCEDURE: US Scrotum. CLINICAL INDICATION: Testicular pain. TECHNIQUE: Multiple sonographic images of the scrotal region were obtained utilizing a linear array transducer with grayscale and color-flow and a Doppler imaging. The images were reviewed on a high-resolution PACS workstation. COMPARISON: No. FINDINGS: The right testicle is well visualized and has a normal echotexture. There are scattered microcalcifications in the right testicle. The right testicle measures measures 3 cm by 2.1 x 4.3 cm. There is normal color-flow. The right epididymis is visualized and measures 1 cm. It is unremarkable in appearance. There is normal color-flow. The left testicle is well visualized and has a normal echotexture. There are scattered microcalcifications in the left testicle. The left testicle measures measures 4.2 x 1.7 by 2.5 cm. There is normal color-flow. The left epididymis is visualized and is unremarkable in appearance. There is normal color-flow. There is trace fluid adjacent to the left testicle. The scrotal wall is unremarkable. No swelling or edema is seen. No other incidental abnormality is identified. IMPRESSION: 1. Bilateral testicular microlithiasis more prominent on the left. 2. Normal blood flow to both testicles. . RPTAT:AAJJ Physician Luis Date Time Electronically viewed and signed by Dawson Giles Physician on 09/11/2016 16:09 JM/ CC: KACI PATEL PA-C MEDICATIONS GIVEN: Tramadol Patient tolerated medication well with no adverse reactions. Patient reported improvement in pain. MEDICAL DECISION MAKING: This is a 31-year-old male past medical history of kidney stones and hematuria who presents emergency department with bilateral flank pain, groin pain and hematuria. Per [facility] system, patient has had numerous visits to numerous emergency departments in the last few days and months for similar complaints. Patient denies these visits and states that he was in [place] thus these visits were not conducted by himself. Vital signs were reviewed. Patient was afebrile. UA showed 2-5 WBC, few calcium oxalate, + hematuria, + epithelial cells. Sample may represent dirty catch vs UTI. Testicular US showed Bilateral testicular microlithiasis more prominent on the left. Normal blood flow to both testicles. Given these findings, the patient's presentation is most consistent with nephrolithiasis, groin pain and hematuria. I have a much lower clinical concern for pyelonephritis, appendicitis, diverticulitis, constipation , urethritis, epididymitis, testicular torsion, septic stone. Given that patient has had numerous CT scans done for the same complaints and is currently afebrile, there is no new indication for additional CT scans at this time. CURES report shows the last time the patient received pain medication was in 08/10- Tramadol 30 tabs. Patient states that he has completely ran out of this medication. Patient states that he is allergic to NSAIDS and tramadol is the only medication that helps with his pain. I advised the patient that I will only prescribe him 10 tabs of Tramadol, 0 refills. I strongly urged the patient to follow up with his PCP and see a urologist EBONY. PRESCRIPTIONS: Tramadol Tamsulosin. Zofran DISCHARGE: At this time, patient is stable for discharge and outpatient management. I discussed the patient's case with my supervising physician, Dr. Frazier, who agreed that no additional CT imaging studies were indicated at this time. Patient provided with a copy of all imaging and urine studies obtained today. I have instructed the patient to follow-up with his/her primary care physician in 1-2 days. If symptoms persist, patient may need to see a specialist for further examinations and testing. I have instructed the patient to promptly return to the ER at any time for any new or worsening symptoms including increased increased pain, fever, nausea, vomiting, urinary changes or weakness. The patient and/or family expressed understanding of and agreement with this plan. All questions were answered. Home care instructions were provided. Departure Diagnosis: Primary Impression: Hematuria Additional Impression: Groin pain Laterality: unspecified laterality Qualified Code: R10.30 - Groin pain, unspecified laterality Condition: Stable Patient Instructions: Hematuria Referrals: NGA PERRY MD,HANNAH JIMENEZ CHARLES K MOTZKIN, DONALD MD= [facility] YOU HAVE RECEIVED A MEDICAL SCREENING EXAM AND THE RESULTS INDICATE THAT YOU DO NOT HAVE A CONDITION THAT REQUIRES URGENT TREATMENT IN THE EMERGENCY DEPARTMENT. FURTHER EVALUATION AND TREATMENT OF YOUR CONDITION CAN WAIT UNTIL YOU ARE SEEN IN YOUR DOCTORS OFFICE WITHIN THE NEXT 1-2 DAYS. IT IS YOUR RESPONSIBILITY TO MAKE AN APPOINTMENT FOR FOLOW-UP CARE. IF YOU HAVE A PRIMARY DOCTOR --you should call your primary doctor and schedule an appointment IF YOU DO NOT HAVE A PRIMARY DOCTOR YOU CAN CALL OUR PHYSICIAN REFERRAL HOTLINE AT IF YOU CAN NOT AFFORD TO SEE A PHYSICIAN YOU CAN CHOSE FROM THE FOLLOWING [facility] [address] [facility] [address] [facility] [address] [facility] [address] [facility] [address] [facility] [facility] [address] [facility]. [facility] YOU HAVE RECEIVED A MEDICAL SCREENING EXAM AND THE RESULTS INDICATE THAT YOU DO NOT HAVE A CONDITION THAT REQUIRES URGENT TREATMENT IN THE EMERGENCY DEPARTMENT. FURTHER EVALUATION AND TREATMENT OF YOUR CONDITION CAN WAIT UNTIL YOU ARE SEEN IN YOUR DOCTORS OFFICE WITHIN THE NEXT 1-2 DAYS. IT IS YOUR RESPONSIBILITY TO MAKE AN APPOINTMENT FOR FOLOW-UP CARE. IF YOU HAVE A PRIMARY DOCTOR --you should call your primary doctor and schedule and appointment IF YOU DO NOT HAVE A PRIMARY DOCTOR YOU CAN CALL OUR PHYSICIAN REFERRAL HOTLINE AT . IF YOU CAN NOT AFFORD TO SEE A PHYSICIAN YOU CAN CHOSE FROM THE FOLLOWING [facility]: [facility] [address] [place] [address] [facility] [address] [place] [address] [facility] [address] [place] [address] Additional Instructions: Call your primary care doctor/urologist TOMORROW for an appointment during the next 1-2 days.See the doctor sooner or return here if your condition worsens before your appointment time. Drink plenty of fluids. Take medication as prescribed. See referral list for urology specialist. KACI PATEL PA-C Sep 11, 2016 16:36
== END 2016-09-11 16:39 | disposition home or self-care (01) ==
LOC: FTE 13:49
DX: R31.9 Hematuria, unspecified (principal)
CPT/HCPCS: 76870; 81001; 81003; 87086; Z7502; Z7610

== ENCOUNTER 2016-09-15 17:47 | Emergency (ER) | payer OTHER ==
[~2016-09-15] VITALS: Ht 177.8 cm; Wt 136.5 kg
[~2016-09-15 17:47] MED LIST changes: +TAMS-14 PO
[2016-09-15 17:49] VITALS: Ht 177.8 cm; Wt 136.5 kg
[2016-09-15] MEDS ORDERED: ONDANSETRON 4 MG INJ IV STA (18:52)
[2016-09-15] MEDS ORDERED: morphine 2 MG INJ IV ONE (19:00)
[2016-09-15] MEDS ORDERED: SOD CHLORIDE 0.9% 1,000 ML IV ONE (19:00)
--- NOTE | 2016-09-15 19:09 | ERD ---
ER Documentation Chief Complaint Date/Time DATE: 09/15/16 TIME: 19:00 Chief Complaint B/L FLANK PAIN WITH NAUSEA /VOMITING X 3 DAYS HPI This pleasant 31-year-old male patient presents to emergency department today reporting nephrolithiasis. Patient reports pain is 9/10 on pain scale, reports dysuria, nausea, vomiting, and diarrhea. Patient states that he is vomited all day today, has not been able to eat or drink anything since yesterday. Patient reports that he was seen and treated here in the emergency department on Wednesday , chart obtained for review. Patient reported history of kidney stones with hematuria and flank pain. Testicular pain. Testicular ultrasound performed with impression of bilateral testicular microlithiasis more prominent on the left. With normal blood flow to testicles. A CAT scan of abdomen and pelvis was not performed at that time due to patient's history. Patient reports that he was discharged with tramadol which he has a documented allergy on chart. States he has been taking tramadol but has not been able to take any since yesterday related to nausea and vomiting. Patient reports pain bilateral low back, dysuria denies hematuria fever or chills. ROS All systems reviewed and are negative except as per history of present illness. Medications Home Meds Active Scripts Acetaminophen* (Tylenol*) 325 Mg Tablet, 2 TAB PO Q6 Y for PAIN AND OR ELEVATED TEMP, #20 TAB Prov:GISEL VALENTIN 09/15/16 Tamsulosin Hcl* (Flomax*) 0.4 Mg Cap.er.24h, 0.4 MG PO BID, #30 CAP Prov:KACI PATEL PA-C 09/11/16 Tramadol HCl (Tramadol HCl) 50 Mg Tablet, 50 MG PO Q4 Y for PAIN, #10 TAB Prov:KACI PATEL PA-C 09/11/16 Tramadol HCl (Tramadol HCl) 50 Mg Tablet, 50 MG PO Q6, #12 TAB Prov:EMERALD CARRILLO MD 07/04/16 Ciprofloxacin Hcl* (Ciprofloxacin Hcl*) 500 Mg Tablet, 500 MG PO BID for 10 Days , TAB Prov:EMERALD CARRILLO MD 07/04/16 Loperamide Hcl* (Imodium*) 2 Mg Capsule, 2 MG PO .AFTER EA LOOSE BM Y for DIARRHEA, #10 TAB Prov:HENRY CAMPOVERDE PA-C 07/01/16 Ondansetron Hcl* (Zofran*) 4 Mg Tablet, 4 MG PO Q6H for NAUSEA AND/OR VOMITING, #30 TAB Prov:HENRY CAMPOVERDEBong LLOYD 07/01/16 Ibuprofen* (Motrin*) 800 Mg Tab, 800 MG PO Q6, #30 TAB Prov:HENRY CAMPOVERDEBong LLOYD 07/01/16 Tramadol HCl (Tramadol HCl) 50 Mg Tablet, 50 MG PO Q6, #10 TAB Prov:JOHN YOU DO 06/03/15 Allergies Allergies: Coded Allergies: ketorolac (Verified Allergy, Mild, 09/15/16) PMhx/Soc History of Surgery: Yes (CHOLECYSTECTOMY, APPENDECTOMY; r knee) Anesthesia Reaction: No Hx Neurological Disorder: No Hx Respiratory Disorders: No Hx Cardiac Disorders: No Hx Psychiatric Problems: No Hx Miscellaneous Medical Probl: No Hx Alcohol Use: Yes (ocassionally) Hx Substance Use: No Hx Tobacco Use: No Smoking Status: Never smoker Physical Exam Vitals Vital Signs Date Time Temp Pulse Resp B/P Pulse Ox O2 Delivery O2 Flow Rate FiO2 09/15/16 21:17 110 18 141/103 98 Room Air 09/15/16 17:49 97.6 116 18 167/94 97 Vitals stable, elevated blood pressure 167/90 for probable pain response. Triage notes were reviewed Physical Exam Const: No acute distress Head: Atraumatic Eyes: Normal Conjunctiva, PERRLA, EOMI ENT: Normal External Ears, Nose and Mouth. Mucous membranes moist Neck: Resp: Chest rise and fall symmetrically, clear to auscultation bilaterally, auscultated no rales wheezes or rhonchi Cardio: Regular rate and rhythm, no murmurs Abd: Soft, non tender, non distended. Normal bowel sounds Skin: Back: No midline or flank tenderness Ext: Neur: Awake and alert Psych: Normal Mood and Affect Results 24 hrs Laboratory Tests Test 09/15/16 18:50 09/15/16 20:01 Urine Color LT. YELLOW Urine Clarity CLEAR Urine pH 6.0 Urine Specific [place] 1.010 Urine Ketones NEGATIVE Urine Nitrite NEGATIVE Urine Bilirubin NEGATIVE Urine Urobilinogen 1.0 E.U./dL Urine Leukocyte Esterase NEGATIVE Urine Hemoglobin NEGATIVE Urine Glucose NEGATIVE% Urine Total Protein NEGATIVE Bedside Urine pH (LAB) 6.5 Bedside Urine Protein (LAB) Negative Bedside Urine Glucose (UA) Negative Bedside Urine Ketones (LAB) Negative Bedside Urine Blood Trace-lysed Bedside Urine Nitrite (LAB) Negative Bedside Urine Leukocyte Esterase (L Negative Current Medications Medications (Trade) Dose Ordered Sig/Federico Route PRN Reason Start Time Stop Time Status Last Admin Dose Admin Sodium Chloride (NS) 1,000 ml @ 1,000 mls/hr Q1H ONCE IV 09/15/16 19:00 09/15/16 19:59 DC 09/15/16 19:15 Morphine Sulfate (morphine) 2 mg ONCE ONCE IV 09/15/16 19:00 09/15/16 19:01 DC 09/15/16 19:15 Ondansetron HCl (Zofran Inj) 4 mg ONCE STAT IV 09/15/16 18:52 09/15/16 18:57 DC 09/15/16 19:15 Acetaminophen (Tylenol Tab) 650 mg ONCE ONCE PO 09/15/16 20:30 09/15/16 20:31 DC 09/15/16 20:37 Procedures/MDM PROCEDURE: CT abdomen and pelvis without IV contrast. CLINICAL INDICATION: Abdominal pain TECHNIQUE: CT scan of the abdomen and pelvis without contrast was performed on the [employer] volumetric [address] scanner. The patient was scanned without intravenous contrast. Coronal and sagittal reformatted images were obtained from the axial source images. The CTDI vol is 23.6 mGy and the DLP is 1576.62 mGy-cm. COMPARISON: 07/01/2016 FINDINGS: CT abdomen: The lung bases are clear. The heart size is not enlarged and is without pericardial thickening or effusion. The liver is without focal mass or intrahepatic biliary dilatation. The liver is mildly enlarged with fatty infiltration which is once again seen. The spleen is again noted to be mildly enlarged. The spleen is homogeneous in density. The stomach is grossly unremarkable. The pancreas as visualized is normal. The gallbladder is again noted to have been removed. The adrenal glands are symmetric and normal. The kidneys are symmetrically unremarkable as well. No renal calculus or obstructive uropathy or mass lesion is seen. The aorta is of normal in caliber. There is no retroperitoneal lymphadenopathy. The genna hepatis region is clear. The large bowel is stool- filled. The small and large bowel and mesentery, as visualized, are otherwise unremarkable. The normal appendix is identified. CT pelvis: The pelvic organs are normal. The pelvic sidewalls and inguinal regions are clear. No pelvic mass, lymphadenopathy, or free fluid is seen. No acute inflammation is seen. The urinary bladder is within normal limits. The surrounding osseous structures are unremarkable. No osteolytic or osteoblastic lesion is detected. IMPRESSION: 1. No acute pathology in the abdomen and pelvis. 2. Mild hepatosplenomegaly with fatty infiltration of the liver again seen. 3. No CT evidence of urolithiasis or obstructive uropathy. RPTAT: HPNM Physician Gabriel Date Time Electronically viewed and signed by Jarvis Adam Physician on 09/15/2016 19 :53 This 31-year-old male patient presenting to emergency department today for pain , reports history of nephrolithiasis, was seen 4 days ago for flank pain and testicular pain, patient had a testicular ultrasound which demonstrates bilateral testicular microlithiasis more prominent in the left with normal blood flow to both testes. Patient reports pain is 10/10 on pain scale, reports he has not been able to eat or drink anything in the last 24 hours. He was treated with 1 L of normal saline, 2 mg of morphine, and Zofran for nausea, renal colic, nephrolithiasis, urinary tract infection suspected, CT of abdomen and pelvis obtained without contrast, the liver without focal mass or intrahepatic biliary dilation. The liver is mildly enlarged with fatty infiltrates. Spleen is again noted to be mildly large. Homogeneous in density , the stomach is grossly unremarkable, pancreas visualized as normal, the gallbladder again is noted to have been removed. The adrenal glands are symmetric and normal. The kidneys are symmetric unremarkable. No renal calculus or obstructive uropathy or mass lesion is seen. The pelvis organs are normal, pelvic sidewalls and inguinal regions are clear. No pelvic mass lymphadenopathy or free fluid seen. No acute inflammation seen. The urinary bladder is within normal limits. Surrounding osseous structures are unremarkable. No osteolytic or osteoblastic lesion is detected. Urinalysis results pending. Chart review notes culture from 09/13/2016 with multiple gram- negative growth -considered contamination. Current plan includes to discharge patient once urinalysis results become available. Possible drug-seeking behavior. Patient will be discharged home with Tylenol. Follow-up with urologist as planned if urinalysis without evidence of bacterial infection. Urinalysis positive for trace microscopic hematuria. Patient denies possibility of sexually transmitted infection, states he has not had intercourse for 3 years. Urine GC chlamydia added on patient will not be treated at this time will wait for results. I feel the patient is stable for discharge at this time. I have discussed results, examination findings, the treatment plan with the patient and family present prior to discharge. Indications for emergent reevaluation, side effects of medication were also discussed. All questions were answered. Patient verbalizes understanding and agrees with plan of care. Departure Diagnosis: Primary Impression: Flank pain Condition: Good Patient Instructions: Flank Pain, Uncertain Cause Comments Follow-up with urologist on Wednesday as planned. GISEL VALENTIN Sep 15, 2016 19:09
--- NOTE | 2016-09-15 19:53 | RADRPT ---
PROCEDURE: CT abdomen and pelvis without IV contrast. CLINICAL INDICATION: Abdominal pain TECHNIQUE: CT scan of the abdomen and pelvis without contrast was performed on the [employer] volumetric [address] scanner. The patient was scanned without intravenous contrast. Coronal and sagittal refo rmatted images were obtained from the axial source images. The CTDI vol is 23.6 mGy and the DLP is 1 576.62 mGy-cm. COMPARISON: 07/01/2016 FINDINGS: CT abdomen: The lung bases are clear. The heart size is not enlarged and is without pericardial thickening or e ffusion. The liver is without focal mass or intrahepatic biliary dilatation. The liver is mildly enlarged wit h fatty infiltration which is once again seen. The spleen is again noted to be mildly enlarged. The spleen is homogeneous in density. The stomach is grossly unremarkable. The pancreas as visualize d is normal. The gallbladder is again noted to have been removed. The adrenal glands are symmetric and normal. The kidneys are symmetrically unremarkable as well. No renal calculus or obstructive u ropathy or mass lesion is seen. The aorta is of normal in caliber. There is no retroperitoneal lymphadenopathy. The genna hepatis region is clear. The large bowel is stool-filled. The small and large bowel and mesentery, as visua lized, are otherwise unremarkable. The normal appendix is identified. CT pelvis: The pelvic organs are normal. The pelvic sidewalls and inguinal regions are clear. No pelvic mass, lymphadenopathy, or free fluid is seen. No acute inflammation is seen. The urinary bladder is wit hin normal limits. The surrounding osseous structures are unremarkable. No osteolytic or osteoblastic lesion is detect ed. IMPRESSION: 1. No acute pathology in the abdomen and pelvis. 2. Mild hepatosplenomegaly with fatty infiltration of the liver again seen. 3. No CT evidence of urolithiasis or obstructive uropathy. RPTAT: HPNM Physician Gabriel Date Time Electronically viewed and signed by Physician Gabriel on 09/15/2016 19:53 /
[2016-09-15 20:00] LABS: URINE BLOOD (Dip) POC Trace-lysed (NEGATIVE)
[2016-09-15 20:20] LABS: ADD UMIC NO; URINE BILIRUBIN (Dip) NEGATIVE (NEGATIVE); URINE BLOOD (Dip) NEGATIVE (NEGATIVE); URINE COLOR LT. YELLOW (YELLOW); URINE GLUCOSE (Dip) NEGATIVE (NEGATIVE); URINE KETONES (Dip) NEGATIVE (NEGATIVE); URINE LEUKOCYTE ESTERASE (Dip) NEGATIVE (NEGATIVE); URINE NITRITE (Dip) NEGATIVE (NEGATIVE); URINE TOTAL PROTEIN (Dip) NEGATIVE (NEGATIVE); URINE UROBILINOGEN (Dip) 1.0 E.U./dL (0.1-1.0)
[2016-09-15] MEDS ORDERED: ACETAMINOPHEN 325 MG TAB PO ONE (20:30)
[2016-09-15] MEDS ORDERED: ACET325T33 PO (21:04)
[2016-09-15 21:17] VITALS: BP 141/103; PULSE 110; RESP 18
[2016-09-16] MEDS ORDERED: ONDA8TAB14 PO (12:49)
== END 2016-09-15 21:18 | disposition home or self-care (01) ==
LOC: FTE 17:47
DX: R10.9 Unspecified abdominal pain (principal)
CPT/HCPCS: 74176; 81003; 87591; 96374; 96375; J2270; J2405; J7030; Z7502; Z7610

== ENCOUNTER 2016-09-16 11:07 | Emergency (ER) | payer SELFPAY ==
[~2016-09-16] VITALS: Wt 137.0 kg
[~2016-09-16 11:07] MED LIST changes: +ACET325T33 PO
[2016-09-16] MEDS ORDERED: ONDANSETRON 4 MG INJ IV STA (11:44)
[2016-09-16] MEDS ORDERED: SOD CHLORIDE 0.9% 1,000 ML IV STA (11:44)
[2016-09-16 12:19] LABS: ADD SCAN DIFF NO
[2016-09-16 12:22] LABS: BASOPHILS % 0.4 % (0.0-2.0); EOSINOPHILS # 0.2 10^3/ul (0.0-0.5); EOSINOPHILS % 2.7 % (0.0-7.0); HEMATOCRIT 44.6 % (42.0-52.0); HEMOGLOBIN 14.6 g/dl (14.0-18.0); LYMPHOCYTES # 1.5 10^3/ul (0.8-2.9); LYMPHOCYTES % 18.5 % (15.0-51.0); MEAN CORPUSCULAR HEMOGLOBIN 27.3 pg (29.0-33.0); MEAN CORPUSCULAR HGB CONC 32.7 g/dl (32.0-37.0); MEAN CORPUSCULAR VOLUME 83.5 fl (82.0-101.0); MEAN PLATELET VOLUME 9.1 fl (7.4-10.4); MONOCYTE # 0.4 10^3/ul (0.3-0.9); MONOCYTES % 5.2 % (0.0-11.0); NEUTROPHILS % 72.8 % (39.0-77.0); PLATELET COUNT 251 10^3/UL (140-415); RED BLOOD COUNT 5.34 10^6/ul (4.70-6.10); RED CELL DISTRIBUTION WIDTH 12.3 % (11.5-14.5); WHITE BLOOD COUNT 8.3 10^3/ul (4.8-10.8)
[2016-09-16 12:23] LABS: ADD UMIC YES; URINE BILIRUBIN (Dip) NEGATIVE (NEGATIVE); URINE BLOOD (Dip) TRACE (NEGATIVE); URINE COLOR LT. YELLOW (YELLOW); URINE GLUCOSE (Dip) NEGATIVE (NEGATIVE); URINE KETONES (Dip) NEGATIVE (NEGATIVE); URINE LEUKOCYTE ESTERASE (Dip) NEGATIVE (NEGATIVE); URINE NITRITE (Dip) NEGATIVE (NEGATIVE); URINE TOTAL PROTEIN (Dip) NEGATIVE (NEGATIVE); URINE UROBILINOGEN (Dip) 0.2 E.U./dL (0.1-1.0)
[2016-09-16 12:29] LABS: URINE RBCS 0-2 /HPF (0)
[2016-09-16 12:34] LABS: ALBUMIN 4.4 g/dl (3.3-4.9)
[2016-09-16 12:35] LABS: POTASSIUM 3.9 mmol/L (3.5-5.1)
[2016-09-16 12:37] LABS: ALBUMIN/GLOBULIN RATIO 1.15; BILIRUBIN,INDIRECT 0.1 mg/dl (0-1.1); BILIRUBIN,TOTAL 0.1 mg/dl (0.2-1.3); CREATININE 0.78 mg/dl (0.61-1.24); TOTAL PROTEIN 8.2 g/dl (6.1-8.1)
[2016-09-16 12:38] LABS: CALCIUM 9.7 mg/dl (8.4-10.2)
[2016-09-16] MEDS ORDERED: ONDA8TAB14 PO (12:49)
--- NOTE | 2016-09-16 12:54 | ERD ---
ER Documentation Chief Complaint Date/Time DATE: 09/16/16 TIME: 12:52 Chief Complaint gudelia flank pain HPI 4-year-old male presents with a history of recurrent bilateral flank pain. He has had a history of gross and microscopic hematuria of uncertain etiology. He did have a kidney stone once but he is had several ER visits for flank pain. He states that improved with IV fluids and and takes Tylenol which helps at home but the pain was more severe today. He does have a history of tramadol but does not like to take medication stronger than Tylenol if he can avoid it. He has a urology appointment 2 weeks ROS All systems reviewed and are negative except as per history of present illness. Medications Home Meds Active Scripts Ondansetron (Ondansetron Odt) 8 Mg Tab.rapdis, 8 MG PO Q6H Y for NAUSEA AND/OR VOMITING, #10 TAB Prov:DEMETRIUS CUNNINGHAM MD 09/16/16 Acetaminophen* (Tylenol*) 325 Mg Tablet, 2 TAB PO Q6 Y for PAIN AND OR ELEVATED TEMP, #20 TAB Prov:GISEL VALENTIN 09/15/16 Tamsulosin Hcl* (Flomax*) 0.4 Mg Cap.er.24h, 0.4 MG PO BID, #30 CAP Prov:KACI PATEL PA-C 09/11/16 Tramadol HCl (Tramadol HCl) 50 Mg Tablet, 50 MG PO Q4 Y for PAIN, #10 TAB Prov:KACI PATEL PA-C 09/11/16 Tramadol HCl (Tramadol HCl) 50 Mg Tablet, 50 MG PO Q6, #12 TAB Prov:EMERALD CARRILLO MD 07/04/16 Ciprofloxacin Hcl* (Ciprofloxacin Hcl*) 500 Mg Tablet, 500 MG PO BID for 10 Days , TAB Prov:EMERALD CARRILLO MD 07/04/16 Loperamide Hcl* (Imodium*) 2 Mg Capsule, 2 MG PO .AFTER EA LOOSE BM Y for DIARRHEA, #10 TAB Prov:HENRY CAMPOVERDE PA-C 07/01/16 Ondansetron Hcl* (Zofran*) 4 Mg Tablet, 4 MG PO Q6H for NAUSEA AND/OR VOMITING, #30 TAB Prov:HENRY CAMPOVERDE PA-C 07/01/16 Ibuprofen* (Motrin*) 800 Mg Tab, 800 MG PO Q6, #30 TAB Prov:HENRY CAMPOVERDE PA-C 07/01/16 Tramadol HCl (Tramadol HCl) 50 Mg Tablet, 50 MG PO Q6, #10 TAB Prov:JOHN YOU DO 06/03/15 Allergies Allergies: Coded Allergies: ketorolac (Verified Allergy, Mild, 09/15/16) PMhx/Soc History of Surgery: Yes (CHOLECYSTECTOMY, APPENDECTOMY; r knee) Anesthesia Reaction: No Hx Neurological Disorder: No Hx Respiratory Disorders: No Hx Cardiac Disorders: No Hx Psychiatric Problems: No Hx Miscellaneous Medical Probl: No Hx Alcohol Use: No Hx Substance Use: No Hx Tobacco Use: No Smoking Status: Never smoker Physical Exam Vitals Vital Signs Date Time Temp Pulse Resp B/P Pulse Ox O2 Delivery O2 Flow Rate FiO2 09/16/16 11:14 98.4 92 20 159/92 99 Physical Exam Const: [] Alert, [id number]. Head: Atraumatic Eyes: Normal Conjunctiva ENT: Normal External Ears, Nose and Mouth. Neck: Full range of motion..~ No meningismus. Resp: Clear to auscultation bilaterally Cardio: Regular rate and rhythm, no murmurs Abd: Soft, non tender, non distended. Normal bowel sounds Skin: No petechiae or rashes Back: No midline tenderness. Mild bilateral flank tenderness without deformities or skin changes per Ext: No cyanosis, or edema Neur: Awake and alert Psych: Normal Mood and Affect Result Diagram: 09/16/16 1200 09/16/16 1200 Results 24 hrs Laboratory Tests Test 09/16/16 12:00 White Blood Count 8.310^3/ul Red Blood Count 5.3410^6/ul Hemoglobin 14.6g/dl Hematocrit 44.6% Mean Corpuscular Volume 83.5fl Mean Corpuscular Hemoglobin 27.3pg Mean Corpuscular Hemoglobin Concent 32.7g/dl Red Cell Distribution Width 12.3% Platelet Count 18700^3/UL Mean Platelet Volume 9.1fl Neutrophils % 72.8% Lymphocytes % 18.5% Monocytes % 5.2% Eosinophils % 2.7% Basophils % 0.4% Nucleated Red Blood Cells % 0.0/100WBC Neutrophils # 6.010^3/ul Lymphocytes # 1.510^3/ul Monocytes # 0.410^3/ul Eosinophils # 0.210^3/ul Basophils # 0.010^3/ul Nucleated Red Blood Cells # 0.010^3/ul Urine Color LT. YELLOW Urine Clarity CLEAR Urine pH 5.5 Urine Specific [place] 1.020 Urine Ketones NEGATIVE Urine Nitrite NEGATIVE Urine Bilirubin NEGATIVE Urine Urobilinogen 0.2 E.U./dL Urine Leukocyte Esterase NEGATIVE Urine Microscopic RBC 0-2/HPF Urine Microscopic WBC NONE SEEN/HPF Urine Hemoglobin TRACE Urine Glucose NEGATIVE% Urine Total Protein NEGATIVE Sodium Level 143mmol/L Potassium Level 3.9mmol/L Chloride Level 104mmol/L Carbon Dioxide Level 25mmol/L Anion Gap 18 Blood Urea Nitrogen 10mg/dl Creatinine 0.78mg/dl Glucose Level 109mg/dl Calcium Level 9.7mg/dl Total Bilirubin 0.1mg/dl Direct Bilirubin 0.00mg/dl Indirect Bilirubin 0.1mg/dl Aspartate Amino Transf (AST/SGOT) 19IU/L Alanine Aminotransferase (ALT/SGPT) 24IU/L Alkaline Phosphatase 91IU/L Total Protein 8.2g/dl Albumin 4.4g/dl Globulin 3.80g/dl Albumin/Globulin Ratio 1.15 Current Medications Medications (Trade) Dose Ordered Sig/Federico Route PRN Reason Start Time Stop Time Status Last Admin Dose Admin Sodium Chloride (NS) 1,000 ml @ 1,000 mls/hr Q1H STAT IV 09/16/16 11:44 09/16/16 12:43 DC 09/16/16 12:17 Ondansetron HCl (Zofran Inj) 4 mg ONCE STAT IV 09/16/16 11:44 09/16/16 11:46 DC 09/16/16 12:09 [facility] Patient has had 2 [address] scans last 6 months without acute findings. An IV was obtained. CBC and CMP are normal patient was given 1 L normal saline IV and Zofran 4 mg IV. Patient has minimal microscopic hematuria, otherwise normal urine. Patient has flank pain which is recurrent with a history of hematuria of uncertain etiology. He should follow-up with urology as scheduled in [facility] nephrology for persistent negative results. Patient was advised to drink clear fluids and take tramadol and Tylenol that he has at home. We will add Zofran given his history of vomiting as well. The patient was stable with no new complaints during the ER course. Clinically, there is no current evidence to suggest meningitis, sepsis, acute abdomen, pneumonia, acute coronary syndrome, pulmonary embolism, or any other emergent condition appearing to require further evaluation or hospitalization. The patient should certainly return for any new or worsening symptoms per the aftercare instructions. They should otherwise follow-up with her primary care doctor for reevaluation this week. Departure Diagnosis: Primary Impression: Flank pain Condition: Stable Patient Instructions: Flank Pain, Uncertain Cause Additional Instructions: No significant blood seen in urine today. Additional labs normal. Take medicine for pain at home as prescribed and return for fevers, new worsening symptoms, otherwise with urology as scheduled. DEMETRIUS CUNNINGHAM MD Sep 16, 2016 12:54
== END 2016-09-16 13:00 | disposition home or self-care (01) ==
LOC: FTE 11:07
DX: R10.9 Unspecified abdominal pain (principal)
CPT/HCPCS: 36415; 80053; 81001; 85025; 96374; 99284; J2405; J7030; 81003

== ENCOUNTER 2016-10-28 17:37 | Emergency (ER) | payer OTHER ==
[~2016-10-28] VITALS: Ht 190.5 cm; Wt 137.5 kg
[~2016-10-28 17:37] MED LIST changes: +ONDA8TAB14 PO
[2016-10-28 17:51] VITALS: Ht 190.5 cm; Wt 137.5 kg
[2016-10-28] MEDS ORDERED: ONDANSETRON (ODT) 4 MG TAB ODT STA (18:15)
[2016-10-28] MEDS ORDERED: ONDA4TAB14 PO (18:17)
[2016-10-28] MEDS ORDERED: HYDROCODONE/APAP (10/325) TAB PO ONE (18:30)
--- NOTE | 2016-10-28 19:42 | ERD ---
ER Documentation Chief Complaint Date/Time DATE: 10/28/16 TIME: 19:40 Chief Complaint abdominal pain x 5 days HPI Patient is a 31-year-old male with history of kidney stones who presents with abdominal pain. He says he has right upper quadrant abdominal pain which radiates to his right lower quadrant. This started on Wednesday and has been constant. He describes it as cramps. He says that he has vomiting and diarrhea as well. He tried to tramadol as well as [place] which were no help. He said that he called his primary doctor who told him to go to the emergency department. Review of old medical records she has multiple visits to the emergency department for similar type complaints. Review of the emergency department information exchange shows visits to 2 separate emergency departments. ROS All systems reviewed and are negative except as per history of present illness. Medications Home Meds Active Scripts Ondansetron (Ondansetron Odt) 4 Mg Tab.rapdis, 4 MG PO Q6H Y for NAUSEA AND/OR VOMITING, #30 TAB Prov:HANNAH PARRISH MD 10/28/16 Ondansetron (Ondansetron Odt) 8 Mg Tab.rapdis, 8 MG PO Q6H Y for NAUSEA AND/OR VOMITING, #10 TAB Prov:DEMETRIUS CUNNINGHAM MD 09/16/16 Acetaminophen* (Tylenol*) 325 Mg Tablet, 2 TAB PO Q6 Y for PAIN AND OR ELEVATED TEMP, #20 TAB Prov:HOMEROGISEL 09/15/16 Tamsulosin Hcl* (Flomax*) 0.4 Mg Cap.er.24h, 0.4 MG PO BID, #30 CAP Prov:KACI PATEL PA-C 09/11/16 Tramadol HCl (Tramadol HCl) 50 Mg Tablet, 50 MG PO Q4 Y for PAIN, #10 TAB Prov:KACI PATEL PA-C 09/11/16 Tramadol HCl (Tramadol HCl) 50 Mg Tablet, 50 MG PO Q6, #12 TAB Prov:EMERALD CARRILLO MD 07/04/16 Ciprofloxacin Hcl* (Ciprofloxacin Hcl*) 500 Mg Tablet, 500 MG PO BID for 10 Days , TAB Prov:EMERALD CARRILLO MD 07/04/16 Loperamide Hcl* (Imodium*) 2 Mg Capsule, 2 MG PO .AFTER EA LOOSE BM Y for DIARRHEA, #10 TAB Prov:HENRY CAMPOVERDE PA-C 07/01/16 Ondansetron Hcl* (Zofran*) 4 Mg Tablet, 4 MG PO Q6H for NAUSEA AND/OR VOMITING, #30 TAB Prov:HENRY CAMPOVERDE PA-C 07/01/16 Ibuprofen* (Motrin*) 800 Mg Tab, 800 MG PO Q6, #30 TAB Prov:HENRY CAMPOVERDE PA-C 07/01/16 Tramadol HCl (Tramadol HCl) 50 Mg Tablet, 50 MG PO Q6, #10 TAB Prov:JOHN YOU 06/03/15 Allergies Allergies: Coded Allergies: codeine (Unverified Allergy, Intermediate, hives, 10/28/16) ketorolac (Verified Allergy, Mild, 09/15/16) PMhx/Soc History of Surgery: Yes (CHOLECYSTECTOMY, APPENDECTOMY; r knee) Anesthesia Reaction: No Hx Neurological Disorder: No Hx Respiratory Disorders: No Hx Cardiac Disorders: No Hx Psychiatric Problems: No Hx Miscellaneous Medical Probl: No Hx Alcohol Use: No Hx Substance Use: No Hx Tobacco Use: No FmHx Family History: diabetes Physical Exam Vitals Vital Signs Date Time Temp Pulse Resp B/P Pulse Ox O2 Delivery O2 Flow Rate FiO2 10/28/16 17:51 98.2 118 18 134/105 96 Physical Exam Const: Mild distress secondary to pain Head: Atraumatic Eyes: Normal Conjunctiva ENT: Normal External Ears, Nose and Mouth. Neck: Full range of motion..~ No meningismus. Resp: Clear to auscultation bilaterally Cardio: Regular rate and rhythm, no murmurs Abd: Diffuse tenderness to palpation without rebound or guarding Skin: No petechiae or rashes Back: No midline or flank tenderness Ext: No cyanosis, or edema Neur: Awake and alert Psych: Normal Mood and Affect Results 24 hrs Current Medications Medications (Trade) Dose Ordered Sig/Federico Route PRN Reason Start Time Stop Time Status Last Admin Dose Admin Acetaminophen/ Hydrocodone Bitart ([place] (10/325)) 1 tab ONCE ONCE PO 10/28/16 18:30 10/28/16 18:31 DC 10/28/16 18:24 Ondansetron HCl (Zofran Odt) 4 mg ONCE STAT ODT 10/28/16 18:15 10/28/16 18:16 DC 10/28/16 18:24 Procedures/MDM Patient is a 31-year-old male presents with acute on chronic abdominal pain. At this point I doubt significant intra-abdominal process as the patient has multiple visits for similar type complaints to our emergency department as well as other emergency departments. The patient has already had a cold cystectomy and appendectomy and I doubt cholecystitis, pancreatitis, appendicitis, or bowel obstruction. The patient was given [place] and Zofran by mouth and will be discharged with a prescription for Zofran. I do believe there may be an element of drug-seeking behavior. He would benefit from pain management follow- up and I will give him information for Dr. Wright. He can return for any worsening symptoms. Departure Diagnosis: Primary Impression: Abdominal pain Abdominal location: generalized Qualified Code: R10.84 - Generalized abdominal pain Condition: Fair Patient Instructions: Abdominal Pain Referrals: NATASHA WRIGHT Additional Instructions: SPECIALIST: YOU HAVE A MEDICAL CONDITION WHICH REQUIRES YOU TO SEE A SPECIALIST WITHIN THE NEXT 1-2 DAYS. PLEASE FOLLOW UP WITH YOUR PRIMARY PHYSICIAN FOR REFFERAL.IF YOU DO NOT HAVE A PRIMARY CARE PHYSICIAN AND/OR YOU CAN NOT AFFORD TO SEE A PHYSICIAN THE FOLLOWING RESOURCES HAVE BEEN SUPPLIED TO YOU. IT IS YOUR RESPONSIBILITY TO BE SEEN BY THE SPECIALIST HANNAH PARRISH MD October 28, 2016 19:42
== END 2016-10-28 19:13 | disposition left against medical advice (07) ==
LOC: FTE 17:37
DX: R10.84 Generalized abdominal pain (principal); R11.10 Vomiting, unspecified
CPT/HCPCS: Z7502; Z7610; 99283

== ENCOUNTER 2019-02-23 13:58 | Emergency (ER) | payer BC, OTHER ==
[~2019-02-23] VITALS: Ht 188 cm; Wt 142.5 kg
[~2019-02-23 13:58] MED LIST changes: +DICY10CA40 PO; -IBUP800T25 PO; +IBUP800T48 PO; +METO10TA92 PO; +NAPR-985 PO; +ONDA4TAB14 PO
[2019-02-23 14:00] VITALS: BP 166/99; PULSE 92; RESP 18; Ht 188 cm; Wt 142.5 kg
[2019-02-23] MEDS ORDERED: ONDANSETRON (ODT) 4 MG TAB ODT STA (14:22)
== END 2019-02-23 14:46 | disposition left against medical advice (07) ==
LOC: FTE 13:58
DX: R11.2 Nausea with vomiting, unspecified (principal); R19.7 Diarrhea, unspecified; R10.12 Left upper quadrant pain; E11.9 Type 2 diabetes mellitus without complications
CPT/HCPCS: 99283; Z7610